=== PATIENT | female | born 1975 | race Two or more races ===

== ENCOUNTER 2025-04-07 16:23 | Emergency (ER) | payer SELFPAY ==
[2025-04-09] MEDS ORDERED: UNABLE TO OBTAIN (16:37)
[2025-04-10] MEDS ORDERED: NO HOME MEDS (15:38)
== END 2025-04-07 18:12 | disposition left against medical advice (07) ==
LOC: ER 16:23
DX: R10.84 Generalized abdominal pain (principal); Z53.21 Procedure and treatment not carried out due to patient leaving prior to being seen by health care provider

== ENCOUNTER 2025-05-08 12:00 | Emergency (ER) | payer MEDICAID ==
[~2025-05-08] VITALS: Ht 149.9 cm; Wt 83.5 kg
[~2025-05-08 12:00] MED LIST: NO HOME MEDS
[2025-05-08 12:05] VITALS: TEMP 98.5
--- NOTE | 2025-05-08 12:21 | ELECTROCARDIOGRAPH REPORT ---
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
[2025-05-08 12:52] LABS: ALBUMIN 2.6 G/DL (3.4-5.0); ANION GAP 9 (8-16); BLOOD UREA NITROGEN 5 MG/DL (7-18); BUN/CREATININE RATIO 6.1 (10.0-20.0); CALCIUM 8.8 MG/DL (8.5-10.1); CHLORIDE 103 MMOL/L (99-107); CREATININE 0.82 MG/DL (0.40-0.90); GLUCOSE 116 MG/DL (70-104); POTASSIUM 3.6 MMOL/L (3.5-5.1); SODIUM 139 MMOL/L (135-145); TOTAL CARBON DIOXIDE 27.1 MMOL/L (24-32); eCRCL 56 ML/MIN; eGFR 74 ML/MIN
--- NOTE | 2025-05-08 12:52 | RADIOLOGY REPORT ---
CHEST RADIOGRAPH Indication: sepsis alert Technique: Single frontal view of the chest was obtained COMPARISON: DI CHEST,SINGLE VIEW on DOS: 04/28/25, DI CHEST,SINGLE VIEW on DOS: 04/27/25, DI CHEST,SINGLE VIEW on DOS: 04/26/25, DI CHEST,SINGLE VIEW on DOS: 04/24/25, DI CHEST,SINGLE VIEW on DOS: 04/24/25 FINDINGS: Lines and Tubes: Tracheostomy in satisfactory position. Lungs: Clear Pleura: No effusion. No pneumothorax. Cardiomediastinal contours: Large hiatal hernia. Bones: Unremarkable IMPRESSION: Large hiatal hernia. Tracheostomy in satisfactory position.
[2025-05-08 12:54] LABS: BASOPHILS # (AUTO) 0.1 X10'3 (0-0.2); EOSINOPHILS # (AUTO) 0.3 X10'3 (0-0.9); HEMOGLOBIN 11.3 g/dl (12.0-16.0); LYMPHOCYTES # (AUTO) 2.8 X10'3 (1.1-4.8); NEUTROPHILS # (AUTO) 8.5 X10'3 (1.8-7.7)
[2025-05-08 12:56] LABS: BASOPHILS % (AUTO) 0.9 % (0-1); EOSINOPHILS % (AUTO) 2.3 % (0-6); HEMATOCRIT 33.7 % (35.0-45.0); LYMPHOCYTES % (AUTO) 22.6 % (21-51); MEAN CORPUSCULAR HEMOGLOBIN 27.2 PG (27.0-31.0); MEAN CORPUSCULAR HGB CONC 33.5 g/dL (33.0-36.5); MEAN CORPUSCULAR VOLUME 81.1 FL (78-98); MEAN PLATELET VOLUME 6.9 FL (7.4-10.4); MONOCYTES # (AUTO) 0.7 X10'3 (0-0.9); MONOCYTES % (AUTO) 5.8 % (2-12); NEUTROPHILS % (AUTO) 68.4 % (42-75); PLATELET COUNT 621 X10'3 (140-440); RED BLOOD COUNT 4.15 X10'6 (4.20-5.60); RED CELL DISTRIBUTION WIDTH 16.8 % (11.5-14.5); WHITE BLOOD COUNT 12.4 X10'3 (4.5-11.0)
--- NOTE | 2025-05-08 13:09 | Physician Documentation ---
History of Present Illness General Chief Complaint: Abdominal Pain Stated Complaint: ABD INFECTION Time Seen by MD: 12:37 History of Present Illness Initial Comments The patient is a 50-year-old female who was admitted here on 04/08/2025 with peritonitis, septic shock and small bowel obstruction who underwent small bowel resection by . She had a stormy course and underwent tracheostomy on 04/22/2025. She signed out AMA on 05/02/2025, six days ago. She returns today in order to have her tracheostomy tube removed and to check on her abdominal wounds. Medication Reconciliation Allergies: Coded Allergies: No Known Allergies (Unverified , 05/08/25) Miscellaneous Medications Home Med List (No Home Medications), (Reported) Review of Systems ROS Constitutional: Denies chills, fatigue, fever, weight gain or weight loss. HEENT: Denies hearing loss, sinus pressure or visual changes. Respiratory: Denies cough, shortness of breath or wheezing. Cardiovascular: Denies chest pain, pain while walking (claudication), edema or palpitations. Gastrointestinal: Denies abdominal pain, blood in stool, constipation, diarrhea, heartburn, loss of appetite, nausea or vomiting. Genitourinary: Denies painful urination (dysuria), excessive amount of urine (polyuria) or urinary frequency. Metabolic/Endocrine: Denies cold intolerance, heat intolerance, excessive thirst (polydipsia) or excessive hunger (polyphagia). Neurological: Denies dizziness, extremity numbness, extremity weakness, headaches, seizures or tremors. Psychiatric: Denies anxiety or depression. Integumentary: Denies breast discharge, breast lump, hives, mole change(s), rash or skin lesion. Musculoskeletal: Denies back pain, joint pain, joint swelling or neck pain. Hematologic: Denies easily bleeding, easily bruises, lymphedema or issues with blood clots. Immunologic: Denies food allergies or seasonal allergies. Physical Exam Physical Exam Vital Signs: Temperature: 98.5, Source: Oral, Heart Rate: 93, Respiratory Rate: 25, BP: 134/89, Pulse Oximetry: 93, Weight: 83.450 Oxygen Flow Rate: 0 Physical Exam Physical Exam Vitals and nursing note reviewed. Constitutional: General: Patient is awake, alert, oriented x 4 in no acute distress and well appearing. Speech is clear and lucid. Appearance: Normal appearance. Patient is not ill-appearing, toxic-appearing or diaphoretic. HENT: Head: Normocephalic and atraumatic. Mouth/Throat: Mouth: Mucous membranes are moist. Pharynx: Oropharynx is clear. Neck: Tracheostomy tube in place. I removed this without difficulty. Nursing will clean the area and apply an occlusive dressing so the patient is able to talk. Eyes: General: No scleral icterus. Extraocular Movements: Extraocular movements intact. Pupils: Pupils are equal, round, and reactive to light. Cardiovascular: Rate and Rhythm: Normal rate and regular rhythm. Heart sounds: No murmur heard. Pulmonary: Effort: No respiratory distress. Breath sounds: No wheezing, rhonchi or rales. Abdominal: General: There is no distension. Surgical wounds appear to be healing but there is some redness at the margins. Palpations: There is no fluid wave, hepatomegaly or mass. Tenderness: There is no abdominal tenderness. There is no guarding. Musculoskeletal: General: No swelling or deformity. Skin: Coloration: Skin is not jaundiced. Findings: No erythema or rash. Neurological: Mental Status: Patient is alert. Progress Results/Orders Results/Orders Orders - SHAWN WAYNE MD Culture Blood (05/08/25 12:13) Urinalysis, Cult If Indicated (05/08/25 12:13) Chest,Single View (05/08/25 12:13) Monitor (05/08/25 12:13) Saline Lock (05/08/25 12:13) Completed Orders - SHAWN WAYNE MD Cbc/Diff (05/08/25 12:13) Chest,Single View (05/08/25 12:13) Electrocardiogram (05/08/25 12:13) Procalcitonin (05/08/25 12:13) BMP (05/08/25 12:13) Lacticsepsis (05/08/25 12:13) Vital Signs 05/08/25 05/08/25 12:05 13:16 Temp 98.5 Pulse 93 91 Resp 25 21 B/P (MAP) 134/89 127/92 (104) Pulse Ox 93 97 O2 Flow Rate 0 0 Laboratory Tests Test 05/08/25 12:29 White Blood Count 12.4 H Red Blood Count 4.15 L Hemoglobin 11.3 L Hematocrit 33.7 L Mean Corpuscular Volume 81.1 Mean Corpuscular Hemoglobin 27.2 Mean Corpuscular Hemoglobin Concent 33.5 Red Cell Distribution Width 16.8 H Platelet Count 621 H Mean Platelet Volume 6.9 L Neutrophils (%) (Auto) 68.4 Lymphocytes (%) (Auto) 22.6 Monocytes (%) (Auto) 5.8 Eosinophils (%) (Auto) 2.3 Basophils (%) (Auto) 0.9 Neutrophils # (Auto) 8.5 H Lymphocytes # (Auto) 2.8 Monocytes # (Auto) 0.7 Eosinophils # (Auto) 0.3 Basophils # (Auto) 0.1 CBC Comment Sodium Level 139 Potassium Level 3.6 Chloride Level 103 Carbon Dioxide Level 27.1 Anion Gap 9 Blood Urea Nitrogen 5 L Creatinine 0.82 Estimated GFR/1.73 m2 74 BUN/Creatinine Ratio 6.1 L Glucose Level 116 H Lactic Acid Level 1.8 Calcium Level 8.8 Albumin 2.6 L Procalcitonin < 0.05 Chemistry Comments Medical Decision Making Findings This 50-year-old female re-presented to the emergency department six days after leaving against medical advice. I removed her tracheostomy tube and will apply an occlusive dressing after cleaning the area. We are currently making arrangements to provide her with a follow-up appointment with her surgeon. Her laboratory data are unremarkable with the exception of a slight leukocytosis. She is stable for discharge. Departure Disposition: 01 HOME / SELF CARE / HOMELESS Impression: Primary Impression: Encounter for postoperative wound check Condition: Stable Referrals: NO PRIMARY CARE PROVIDER (PCP) Signature Scribe Signature: . Attestation: . SHAWN WAYNE MD May 08, 2025 13:09
[2025-05-08 13:16] VITALS: BP 127/92; PULSE 91; O2SAT 97
[2025-05-08 13:26] VITALS: RESP 22
== END 2025-05-08 13:36 | disposition home or self-care (01) ==
LOC: ER 12:01
DX: Z48.89 Encounter for other specified surgical aftercare (principal)
CPT/HCPCS: 36415; 71045; 80048; 83605; 84145; 85025; 87040; 93005; 99285; A6258; A6449

== ENCOUNTER 2025-05-23 11:59 | Emergency (ER) | payer MEDICAID ==
[~2025-05-23] VITALS: Ht 149.9 cm; Wt 83.6 kg
[2025-05-23 12:04] VITALS: BP 156/97; PULSE 88; RESP 18; O2SAT 98
--- NOTE | 2025-05-23 12:27 | Physician Documentation ---
History of Present Illness ~ Chief Complaint: Medical Clearance Stated Complaint: MED CLEARENCE Time Seen by MD: 12:15 HPI This is a 50-year-old female who presents requesting medical clearance to enter rehab program for methamphetamine abuse, patient reports that she had a recent abdominal hernia repair surgery and is scheduled to follow up with her surgeon in two days for staple and surgical drain removal. Patient reports she feels otherwise well and reports no fevers or chills. Patient reports pain is well ma naged with [id number] medications. Reports no opioid or alcohol use. Tetanus within 5 years?: No Medication Reconciliation Allergies: Coded Allergies: No Known Allergies (Unverified , 05/08/25) Miscellaneous Medications Home Med List (No Home Medications), (Reported) Past Medical History Patient History: Patient reports no known family medical history. Review of Systems ROS As stated above in the HPI, otherwise all systems are reviewed and negative. Physical Exam Vital Signs: Temperature: 99.1, Source: Temporal, Heart Rate: 88, Respiratory Rate: 18, BP: 156/97, Pulse Oximetry: 98, Weight: 83.640 Oxygen Flow Rate: 0 Physical Exam VITALS: Reviewed and as above. GENERAL: Alert, nontoxic appearing, no apparent distress. EENT: PERRLA, EOMI RESPIRATORY: No increased work of breathing, no respiratory distress, speaking in full clear sentences, clear lung sounds in all burris CV: Regular rate and rhythm no murmur SKIN: Abdominal surgical wound, appears well healing with minor erythema without surrounding tenderness or induration. Progress Results/Orders Results/Orders Vital Signs 05/23/25 05/23/25 12:04 12:43 Temp 99.1 99.1 Pulse 88 Resp 18 B/P (MAP) 156/97 Pulse Ox 98 O2 Flow Rate 0 Medical Decision Making Findings This otherwise well-appearing 50-year-old female with history of methamphetamine abuse presented requesting medical clearance to enter rehab program for methamphetamine abuse, patient did have recent abdominal surgery and physical exam demonstrated well healing surgical wound, patient has follow up in two days with surgeon which is reassuring. Patient reports feeling otherwise well and remainder of physical exam benign. It is reassuring patient reported no history of opioid or alcohol abuse to put her at risk for withdrawal. Patient is hemo dynamically stable and appropriate for outpatient follow up. Patient cleared to enter her rehab program. Differential Dx:Considerations: Include: Intoxication-Alcohol, Intoxication- Other drug, Personality disorder, Substance abuse disorder, Acute delirium, Alcohol withdrawl syndrom, Other (Cellulitis, abscess, surgical site infection, surgical wound dehiscence) Departure Disposition: 01 HOME / SELF CARE / HOMELESS Impression: Primary Impression: General medical exam Additional Impressions: Healing of postoperative wound History of methamphetamine abuse Condition: Improved Discharge Instructions: Medical Screening Exam Additional Instructions: Your surgical wound appears to be healing, please follow up with your surgeon as scheduled. It does not appear that you need further wound care or antibiotics at this time. You are medically cleared to enter your rehabilitation program. Please also follow up with your primary care provider or [facility] in the next few days. Please return to the emergency department for any new or worsening concerning symptoms. Referrals: NO PRIMARY CARE PROVIDER (PCP) Education Educated: Patient Educated regarding: diagnosis, treatment, prognosis, need for follow up Signature Scribe Signature: No scribe Attestation: The note accurately reflects work and decisions made by me.JOE Nunez 05/23/25 21:59 AMANDA FAUSTIN May 23, 2025 12:27
[2025-05-23 12:43] VITALS: TEMP 99.1
== END 2025-05-23 12:46 | disposition home or self-care (01) ==
LOC: ER 12:00
DX: Z00.8 Encounter for other general examination (principal); F15.10 Other stimulant abuse, uncomplicated
CPT/HCPCS: 99282